=== PATIENT | female | born 1955 | race Caucasian/White ===

== ENCOUNTER 2016-11-17 06:38 | Observation (INO) | payer OTHER ==
[~2016-11-17] VITALS: Ht 167.6 cm; Wt 49.9 kg
[2016-11-17] MEDS ORDERED: SODIUM CHLORIDE 0.9% 1,000 ML IV ONE (07:56)
[2016-11-17] MEDS ORDERED: HYDROmorphone HCL 2 MG/ML VL IV ONE (08:00)
[2016-11-17] MEDS ORDERED: PROMETHAZINE HCL 25 MG/ML 1ML IV ONE (08:00)
[2016-11-17 09:37] LABS: Basophils # (auto) 0 uL; Basophils % (auto) 0.2 % (0.0-2.0); Eosinophils # (auto) 0 uL; Eosinophils % (auto) 1.5 % (0.0-7.0); Hematocrit 33.4 % (36.0-46.0); Hemoglobin 11.1 g/dL (12.2-16.2); Lymphocytes # (auto) 0.4 uL; Lymphocytes % (auto) 13.1 % (10.0-50.0); Mean Corpuscular Hemoglobin 29.5 pg (28.0-32.0); Mean Corpuscular Hgb Conc. 33.2 g/dL (32.0-36.0); Mean Corpuscular Volume 88.9 fL (80.0-100.0); Mean Platelet Volume 9.4 fL (7.4-10.4); Monocytes # (auto) 0 uL; Monocytes % (auto) 1.6 % (0.0-12.0); Neutrophils # (auto) 2.3 uL; Neutrophils % (auto) 83.6 % (37.0-80.0); Platelet Count (auto) 146 10^3/uL (140-450); Red Cell Distribution Width 14.9 % (11.6-16.0); White Blood Cell 2.8 10^3/uL (4.4-10.8)
[2016-11-17 09:52] LABS: INR 1.05 (0.9-1.15); Partial Thromboplastin Time 34.8 sec (22.64-33.71); Prothrombin Time 10.8 sec (9.37-12.3)
[2016-11-17 10:15] VITALS: BP 105/77
[2016-11-17 10:47] LABS: Albumin 3.3 g/dL (3.4-5.0); BUN/Creatinine Ratio 28.3; Bilirubin, Total 1.1 mg/dL (0.2-1.0); Calcium 9.3 mg/dL (8.5-10.1); Magnesium 2.1 mg/dL (1.6-2.6); Total Protein 7.3 g/dL (6.4-8.2)
[2016-11-17 11:10] LABS: Potassium 4.8 mmol/L (3.5-5.1)
== END 2016-11-17 14:47 | disposition home or self-care (01) | DRG 312 ==
LOC: EDBD 06:38 → ER 06:40 → OVERFLOW 07:57 → ER 14:47
PROVIDERS: ADMIT Emergency Medicine; ATTEND Emergency Medicine
DX: R55 Syncope and collapse (principal); C79.51 Secondary malignant neoplasm of bone; E44.1 Mild protein-calorie malnutrition; R53.1 Weakness; I10 Essential (primary) hypertension; C50.919 Malignant neoplasm of unspecified site of unspecified female breast; D63.8 Anemia in other chronic diseases classified elsewhere; S00.03XA Contusion of scalp, initial encounter; W19.XXXA Unspecified fall, initial encounter; Y92.009 Unspecified place in unspecified non-institutional (private) residence as the place of occurrence of the external cause; Y93.89 Activity, other specified; Y99.8 Other external cause status
CPT/HCPCS: 36415; 70450; 80053; 82962; 83735; 85025; 85610; 85730; 93005; 96360; 99285; G0378